=== PATIENT | female | born 1955 | race Caucasian/White ===

== ENCOUNTER → 2017-06-30 | Outpatient (CLI) | payer BC | END | disposition home or self-care (01) | LOC: LABPAT 11:43 | PROVIDERS: ATTEND Orthopaedic Surgery | DX: Z01.812 Encounter for preprocedural laboratory examination (principal) | CPT/HCPCS: 87070 ==

== ENCOUNTER 2017-07-25 09:21 | Inpatient (IN) | payer BC ==
[2017-07-14 12:04] VITALS: BMI 51.2
--- NOTE | 2017-07-24 09:42 | HP ---
HISTORY AND PHYSICAL CHIEF COMPLAINT: Right greater than left knee pain. HISTORY OF PRESENT ILLNESS: The patient is a 61-year-old retired female who presents with progressive right knee pain, worsening over the past 6 months. She notes pain with any weightbearing activities. She has been limping. She has tried medications in addition to injections with only partial temporary relief. She notes the pain severely limits her normal function and act and activities. PAST MEDICAL HISTORY: Significant for hypothyroidism and obesity. PAST SURGICAL HISTORY: Significant for bilateral knee arthroscopy. CURRENT MEDICATIONS: Aspirin, Synthroid. She denies drug allergies. FAMILY HISTORY: Significant for diabetes and heart disease. SOCIAL HISTORY: Negative for current tobacco or alcohol use. REVIEW OF SYSTEMS: Sixteen point review of systems otherwise reviewed and is noncontributory. PHYSICAL EXAMINATION: On examination, the patient is approximately 5 foot 2, 270 pounds of endomorphic habitus. HEENT exam is nonfocal. Neck is supple. She has painless passive motion of the right hip. Straight leg raise is negative. Active motion right knee -8 to 95 degrees of flexion. She is tender about the medial joint line. She has a mild effusion. Collaterals are stable, Sreedhar's negative, Yovany's is equivocal. Her distal neurovascular appears intact in the right lower extremity. She has genu varum alignment. IMPRESSION: 1. Right knee severe medial and patellofemoral compartment osteoarthrosis. 2. Increased body mass index. RECOMMENDATIONS: I talked to the patient at length regarding her disorder and treatment options. At this point, she is quite symptomatic despite extensive conservative measures. After thorough a discussion, she opts to proceed with surgery. We will plan to proceed with right total knee arthroplasty. Risks and benefits were discussed at length in layman's terms. We will institute DVT prophylaxis postoperatively. MMODL / IJN: [id number] /
[~2017-07-25 09:21] MED LIST: ACETAMINOPHEN TAB 500 MG TAB PO ONE; DEXAMETHASONE SOD PHOSPHATE 10 MG/ML 1 ML VIAL IV ONE; LIDOCAINE 1% 20 ML VIAL (10MG/ML) FOR IV START INTRADERMA PRN; MELOXICAM 7.5 MG TAB PO ONE; MIDAZOLAM 2 MG/2 ML VIAL IV PRN; MORPHINE SULFATE 2 MG/ML SYRINGE IV PRN; ONDANSETRON 4 MG/2 ML VIAL IVP ONE; TRANEXAMIC ACID 1,000 MG in SODIUM CHLORIDE 0.9% 50 ML IVPB ONE
[2017-07-25] MEDS: LACTATED RINGERS 1,000 ML IV SCH (12:05)
[2017-07-25] MEDS ORDERED: MIDAZOLAM 2 MG/2 ML VIAL IV ONE (12:15)
[2017-07-25] MEDS ORDERED: ROPIVACAINE 246.25 MG, EPINEPHrine 0.5 MG, KETOROLAC 30 MG, cloNIDine HCL/PF 80 MCG, WA... MISCELLANE ONE ×5 (14:00)
[2017-07-25] MEDS ORDERED: PHENYLEPHRINE-0.9% NACL SYG 1 MG/10 ML SYRINGE ONE (14:12)
[2017-07-25] MEDS ORDERED: GLYCOPYRROLATE 0.2 MG/ML 2 ML VIAL ONE (14:12)
[2017-07-25] MEDS ORDERED: ONDANSETRON 4 MG/2 ML VIAL ONE (14:12)
[2017-07-25] MEDS ORDERED: fentaNYL (PF) 50 MCG/ML 2 ML AMP ONE (14:12)
[2017-07-25] MEDS ORDERED: SODIUM CHLORIDE 0.9% 100 ML BAG ONE (14:12)
[2017-07-25] MEDS ORDERED: TRANEXAMIC ACID 1,000 MG/10 ML VIAL ONE (14:12)
[2017-07-25] MEDS ORDERED: PROPOFOL 10 MG/ML 20 ML VIAL IV ONE (14:12)
[2017-07-25] MEDS ORDERED: MIDAZOLAM 2 MG/2 ML VIAL ONE (14:12)
[2017-07-25] MEDS ORDERED: ACETAMINOPHEN TAB 325 MG TAB PO PRN (14:14)
[2017-07-25] MEDS ORDERED: ONDANSETRON 4 MG/2 ML VIAL IVP PRN (14:14)
[2017-07-25] MEDS ORDERED: HYDROcodone/APAP 7.5-325MG 1 EACH TAB PO PRN ×2 (14:14)
[2017-07-25] MEDS ORDERED: MORPHINE SULFATE 4 MG/ML SYRINGE IVP PRN ×2 (14:14)
[2017-07-25] MEDS ORDERED: MORPHINE SULFATE 4 MG/ML SYRINGE IV PRN ×2 (14:14)
[2017-07-25] MEDS ORDERED: NALOXONE 0.4 MG/ML 1 ML VIAL IV PRN (14:14)
[2017-07-25] MEDS ORDERED: MAGNESIUM HYDROXIDE 2,400 MG/10 ML CUP PO PRN (14:14)
[2017-07-25] MEDS ORDERED: ceFAZolin 3,000 MG in SODIUM CHLORIDE 0.9% IRRIGATIO 3,000 ML IRRIGATION ONE (14:58)
[2017-07-25] MEDS ORDERED: LACTATED RINGERS 1,000 ML IV ONE ×2 (15:12)
--- NOTE | 2017-07-25 16:39 | P.OP ---
Date of Procedure: 07/25/17 Preoperative Diagnosis: Right knee severe tricompartmental osteoarthrosis/BMI 51.2 Postoperative Diagnosis: Same Procedure(s) Performed: Right total knee oastunodoosj-aoojnzmn-wlcyomitk stabilized Implants: Depuy Attune size 5 narrow posterior stabilized cemented femoral component, size 4 cemented tibial component, 9 mm articular surface, 32 mm cemented patellar component. Anesthesia: spinal Surgeon: Gerald Pina Wellness Program Coordinator #1: Rinku Castellanos Estimated Blood Loss (ml): 100 Pathology: other (Bone fragments) Condition: stable Disposition: PACU Indications for Procedure: The patient's a 61-year-old female who presents with progressive right knee pain secondary to osteoarthrosis despite extensive conservative measures. A discussion of the risks and benefits of operative intervention versus continued conservative measures was made with patient. She opted to proceed with surgery. Operative risks to include infection, neurovascular injury, development of blood clots, possible component loosening, possible component failure and need for subsequent procedures was discussed. With her increased body mass index, she understood she was at high risk for complications. Informed consent was obtained. Operative Findings: As below Description of Procedure: The patient was brought to the operating room, and after induction of spinal anesthesia the right lower extremity was prepped and draped in normal fashion. The tourniquet was inflated to 270 mmHg. A longitudinal incision extending 3 finger breaths above the superior pole of patella extending to the medial aspect of the tibial tubercle was then made. The skin and subcutaneous tissues were divided sharply. Electrocautery was used for hemostasis. A medial parapatellar arthrotomy is performed. The medial soft tissues to include the superficial and deep portions of the medial collateral ligament as well as the medial hamstring tendons were elevated subperiosteally. The posterior medial capsule was also elevated. The patella was everted. A portion of the to patella fat pad was excised sharply. The knee was flexed. The anterior cruciate ligament was sacrificed. A starting hole was made in the distal femur 1 cm anterior to the posterior cruciate ligament origin. An intramedullary femoral guide was then gently inserted planning on 5 valgus distal cut with 9 mm distal resection. The cutting block was pinned in place. The distal cut was then made. The posterior referencing sizing guide was utilized. I felt size 5 was most appropriate. 3 of external rotation was built into the system and verified off the trans-epicondylar axis and the posterior condyles. The cutting block was pinned in place. The anterior, posterior, and chamfer cuts were then made. The bone fragments were removed. The box cutting guide was placed and the intercondylar notch was cut was made with a reciprocating saw. The trial size 5 narrow femoral component was placed and was fully seated. There is good anterior to posterior and medial to lateral fit. The distal peg holes were drilled. The trial component was then removed. Attention was then paid towards preparing the proximal tibia. An extra measure tibial guide was utilized in line with the tibial shaft and second metatarsal distally. I planned on 3 posterior slope. I planned on 2 mm resection from the medial compartment. The cutting block was pinned in place. The proximal tibial cut was made in the bone removed in one fragment. I felt I was tight in both flexion and extension therefore an additional 2 mm was resected. The remnants of the medial and lateral menisci were excised at the capsular junction with electrocautery. The tibia sized most appropriate size 4. The trial femoral and tibial components were placed along with a 9 mm articular surface. I was able to obtain full flexion and extension with stability with varus and valgus stress. The tibial rotation was marked with electrocautery in line with the medial one third of the tibial tubercle after several flexion and extension cycles. Attention was then paid towards preparing the patella. A patella reamer was utilized taking this down to 14 mm of bone stock. A good flush cut was made. The patella sized most appropriately 32 mm. The peg holes were drilled. The trial components placed. The knee was taken through range of motion. I had good patellofemoral tracking with no hands technique. The trial components were then removed. The tibia was prepared in the appropriate rotation with appropriate drill and keel punch. The posterior soft tissues were injected with ropivacaine. The flexion and extension gaps were checked and felt to be symmetric. The bony surfaces were prepared with pulsatile lavage and dried. The tibial component was then cemented in placed and was fully seated. Excess cement was removed. The femoral component cemented in placed and was fully seated. Excess cement was removed. The trial 9 mm articular surface was placed and the knee was put in full extension. The patella component was cemented placed and was fully seated. After the cement had sufficiently hardened, the knee was again taken through range of motion felt to be stable in flexion and extension with varus and valgus stress. The trial articular surface was removed and the final one inserted. This was fully seated. Care was taken to avoid any soft tissue interposition. Pulsatile lavage was again utilized. The medial parapatellar arthrotomy was closed with # 2 Ethibond suture. The tourniquet was deflated less than 75 minutes total tourniquet time. Final hemostasis was obtained with electrocautery. The second dose of IV TXA was given. The deep subcu tissues were reapproximated interrupted 2-0 Vicryl sutures. The superficial subcu tissues were reapproximated interrupted 2-0 Vicryl sutures. The skin was reapproximated with 3-0 subcuticular strata fix suture. Skin tape and adhesive was applied. A sterile dressing was applied. The patient was awoken from sedation and transferred to recovery room in good condition. Blood loss was estimated at 100 mL. No complications were incurred. Sponge and needle counts were correct at the end of the case.
--- NOTE | 2017-07-25 17:04 | XR ---
EXAMINATION TYPE: XR knee limited RT DATE OF EXAM: 07/25/2017 CLINICAL HISTORY: Right knee pain and arthritis status post total knee replacement. TECHNIQUE: Portable AP and crosstable lateral views of the right knee are obtained immediately posto peratively. COMPARISON: None FINDINGS: Metallic hardware from total right knee arthroplasty is seen and appears satisfactory in a lignment and position. There is evidence of recent surgery with diffuse subcutaneous gas and swellin g and percutaneous surgical drain noted. IMPRESSION: METALLIC HARDWARE FROM TOTAL RIGHT KNEE ARTHROPLASTY IS SATISFACTORY IN ALIGNMENT.
[2017-07-25] MEDS: traMADol 50 MG TAB PO SCH ×2 (17:49→23:06)
[2017-07-25] MEDS ORDERED: SENNOSIDES-DOCUSATE SODIUM 1 EACH TAB PO SCH (21:00)
[2017-07-25 22:47] VITALS: PULSE 79
[2017-07-26] MEDS: LACTATED RINGERS 1,000 ML IV SCH (02:35)
[2017-07-26 07:50] LABS: Basophils % (A) 0 %; Eosinophils % (A) 0 %; HCT 39.1 % (34.0-46.0); HGB 12.7 gm/dL (11.4-16.0); Lymphocytes # (A) 0.9 k/uL (1.0-4.8); Lymphocytes % (A) 7 %; MCH 31.2 pg (25.0-35.0); MCHC 32.4 g/dL (31.0-37.0); MCV 96.3 fL (80.0-100.0); Mean Platelet Volume 7.9; Monocytes # (A) 1.1 k/uL (0-1.0); Monocytes % (A) 9 %; Neutrophils # (A) 10.1 k/uL (1.3-7.7); Neutrophils % (A) 82 %; Platelet Count 210 k/uL (150-450); RBC 4.07 m/uL (3.80-5.40); RDW 12.8 % (11.5-15.5); WBC 12.3 k/uL (3.8-10.6)
[2017-07-26] MEDS: traMADol 50 MG TAB PO SCH (07:50)
[2017-07-26 07:55] VITALS: BP 132/80; RESP 16; TEMP 97
[2017-07-26] MEDS ORDERED: LEVOTHYROXINE 88 MCG TAB PO SCH (09:00)
[2017-07-26] MEDS ORDERED: ASPIRIN 81 MG PO SCH ×2 (09:00→09:05)
[2017-07-26] MEDS ORDERED: RIVAROXABAN 10 MG TAB PO SCH (09:00)
--- NOTE | 2017-07-26 11:10 | P.PN ---
Subjective Progress Note Date: 07/26/17 Principal diagnosis: Status post right total knee arthroplasty Patient seen today resting in her hospital chair, she appears comfortable. Urinary catheters been removed. She is ambulating with therapy. She denies any headaches, lightheadedness, chest pain, shortness of breath. Objective - Vital Signs Vital signs: Vital Signs Temp 97 F L 07/26/17 07:54 Pulse 79 07/25/17 19:30 Resp 16 07/26/17 07:54 BP 132/80 07/26/17 07:54 Pulse Ox 97 07/26/17 07:54 Intake & Output 07/25/17 07/26/17 07/26/17 18:59 06:59 18:59 Intake Total 1726 Output Total 225 1600 325 Balance 1501 -1600 -325 Weight 127.006 kg Intake: IV 1726 Output: Drainage 150 25 Right Knee 150 25 Urine 125 1450 300 Uretheral (Adams) 450 300 Estimated Blood Loss 100 Other: Voiding Method Indwelling Catheter Indwelling Catheter - Exam Right lower extremity: Incision is clean, dry, and intact. The prineo tape is in good condition. There is minimal soft tissue swelling and ecchymosis surrounding the medial and lateral aspects of the incision. Calf is soft, no tenderness with palpation. Plantar flexion, dorsiflexion, EHL, FHL are intact. Sensory exam to light touch throughout the extremity is intact, dorsal pedis pulses 2+. - Labs CBC & Chem 7: 07/26/17 06:58 Labs: Abnormal Lab Results - Last 24 Hours (Table) 07/26/17 Range/Units 06:58 WBC 12.3 H (3.8-10.6) k/uL Neutrophils # 10.1 H (1.3-7.7) k/uL Lymphocytes # 0.9 L (1.0-4.8) k/uL Monocytes # 1.1 H (0-1.0) k/uL Assessment and Plan Plan: Assessment: Postoperative day #1 status post right total knee arthroplasty Plan: Pain control, continue use of oral medication GI and DVT prophylaxis, continue Xarelto 10 mg daily Wound care instructions were discussed Icing and elevating techniques were discussed Medical recommendations Encourage incentive spirometer Discharge planning: Patient may be discharged home today Time with Patient: Less than 30
--- NOTE | 2017-07-26 11:14 | P.DS ---
Providers Date of admission: 07/25/17 11:23 Expected date of discharge: 07/26/17 Attending physician: Gerald Pina Consults: 07/25/17 14:14 Consult Physician Routine Consulting Provider: Jaswant Hernandez Reason/Comments: medical management Do you want consulting provider notified?: Yes Primary care physician: Jaswant Hernandez [facility] Course: Date of admission: 07/25/2017 Date of discharge: 07/26/2017 Admission diagnosis: Status post right total knee arthroplasty Discharge diagnosis: Same Attending physician: Dr. Pina Surgical procedures: Right total knee arthroplasty Brief history: Patient is a 64-year-old female with a history of progressive primary right knee arthritis. At this point patient has failed conservative treatment measures and has opted to proceed with a elective right total knee arthroplasty. Hospital course: Details of patient's surgery can be found in operative report. Patient tolerated the procedure well and was subsequently transported to orthopedic floor. Patient's orthopeidc and medical care was provided daily. Patient had daily laboratory tests performed for evaluation of overall blood counts. Patient had daily physical therapy to include strengthening range of motion as well as education with walker ambulation. Patient had daily CPM usage as part of their physical therapy program. Patient was treated with Xarelto for their postoperative DVT prophylaxis during their inpatient stay. Patient was noted to have a relatively uneventful postoperative course. Patient reported satisfactory pain control with oral pain medications by postoperative day 0. Patient showed satisfactory progress with physical therapy. Patient moved steadily through the program and had no difficulty meeting the goals by postoperative day 2. Given patient's otherwise satisfactory course and having met physical therapy goals, plan is to discharge patient home on postoperative day 2. Discharge condition/disposition: Patient will be discharged home in stable condition. Discharge medications: Instructions are given on resumption of patient's normal daily medications per primary care recommendation, in addition patient will be prescribed Winchester 7.5 mg/325 mg, tramadol 50 mg, Colace 100 mg, Xarelto 10 mg. Discharge instructions: 1. Wound care and infection precautions, keep incision dry and covered while showering, no lotions, creams, moisturizers. No soaking, tubs, pools, hottubs. Do not scrub over the incision. 2. Weight-bear as tolerated with walker / cane until follow-up. 3. Ice and elevate when necessary. Do not exceed 20 minutes per hour with ice pack. 4. Utilize compression sleeve until seen at first follow up appointment. 5. Visiting nursing care. 6. Home physical therapy [including home CPM]. 7. Pain meds and anticoagulants per prescription. 8. Pain medication has potential to cause constipation. Increase oral fluid and fiber intake. Contact primary care provider if you have not had a bowel movement within 48 hours after discharge 9. No anti-inflammatory medication until discussed at first post operative visit, this including Motrin, Aleve, Mobic, Diclofenac. 10. Follow up in office at 2 weeks postop with Roscoe Castellanos PA-C 11. Follow up with your primary care doctor 7-10 days after discharge. 12. Contact [facility] with any questions, . Procedures: Right total knee arthroplasty Patient Condition at Discharge: Good Plan - Discharge Summary Discharge Rx Participant: Yes New Discharge Prescriptions: New Rivaroxaban [Xarelto] 10 mg PO DAILY #12 tab Docusate [Colace] 100 mg PO DAILY #30 capsule HYDROcodone/APAP 7.5-325MG [Winchester 7.5] 1 - 2 each PO Q6HR PRN #60 tab PRN Reason: Pain traMADol HCl [Ultram] 50 mg PO Q6H PRN #40 tab PRN Reason: Pain No Action Oaiqvcpmcdfyqv-QM-Kbzyeetuoe [Folbic] 1 tab PO DAILY Levothyroxine Sodium 88 mcg PO DAILY Aspirin [Adult Low Dose Aspirin EC] 81 mg PO DAILY Vitamin D3(Unknown Dose) 1 tab PO DAILY Discharge Medication List Aspirin [Adult Low Dose Aspirin EC] 81 mg PO DAILY 07/14/17 [History] Emyjsiogsfocgk-LS-Sbedkbfplt [Folbic] 1 tab PO DAILY 07/14/17 [History] Levothyroxine Sodium 88 mcg PO DAILY 07/14/17 [History] Rivaroxaban [Xarelto] 10 mg PO DAILY #12 tab 07/25/17 [Rx] Vitamin D3(Unknown Dose) 1 tab PO DAILY 07/25/17 [History] Docusate [Colace] 100 mg PO DAILY #30 capsule 07/26/17 [Rx] HYDROcodone/APAP 7.5-325MG [Winchester 7.5] 1 - 2 each PO Q6HR PRN #60 tab 07/26/17 [ Rx] traMADol HCl [Ultram] 50 mg PO Q6H PRN #40 tab 07/26/17 [Rx] [facility]ment[facility] 1 Week Rinku Castellanos PAC [PHYSICIAN LICENSING COORDINATOR] - 08/09/17 3:10 pm Activity/Diet/Wound Care/Special Instructions: Orthopedic Discharge Instructions: 1. Wound care and infection precautions, keep incision dry and covered while showering, no lotions, creams, moisturizers. No soaking, pools, hot tubs. Do not scrub over incision. 2. Weight-bear as tolerated with walker / cane until follow-up. 3. Ice and elevate when necessary. Do not exceed 20 minutes per hour with ice pack. 4. Utilize compression sleeve until seen at first follow up appointment. 5. Visiting nursing care. 6. Home physical therapy including home CPM. 7. Pain meds and anticoagulants per prescription. 8. Pain medication has potential to cause constipation. Increase oral fluid and fiber intake. Contact primary care provider if you have not had a bowel movement within 48 hours after discharge. 9. No anti-inflammatory medication until discussed at first post operative visit, this including Motrin, Aleve, Mobic, Diclofenac. 10. Follow up in office at 2 weeks postop with Roscoe Castellanos PA-C 11. Follow up with your primary care doctor 7-10 days after discharge. 12. Contact [facility] with any questions, . Discharge Disposition: HOME WITH HOME HEALTH SERVICES
--- NOTE | 2017-07-26 22:35 | CONS ---
CONSULTATION This is a consultation being done at the request of Dr. Gerald Pina. DATE OF SERVICE: Date patient was seen is 07/26/2017. HISTORY OF PRESENT ILLNESS: The patient is a pleasant 61-year-old white female who was admitted for undergoing elective right total knee arthroplasty. The patient was having persistent problem with her right knee and failed conservative measures. She had previous right knee arthroscope for internal derangement. She was pknr-ut-vejp arthritis and her quality of life was diminished. She elected to undergo a right total knee arthroplasty today and is doing quite well. CURRENT MEDICATIONS: Include aspirin and levothyroxine 88 mcg once daily. ALLERGIES: No known drug allergies. PAST SURGICAL HISTORY: Previous operations include the right knee arthroscopy, foot surgery and a tubal ligation. PAST MEDICAL HISTORY: Significant for hypothyroidism, degenerative joint disease and osteoarthritis and obesity. REVIEW OF SYSTEMS: She denies any cough, congestion, shortness of breath. No nausea, vomiting, diarrhea, constipation. She denies any neurological complications such as stroke or paralysis. She denies any skin rashes. She denies any psychiatric difficulties. PHYSICAL EXAM: Her vital signs are stable. She is afebrile. HEENT. HEAD: Normocephalic, atraumatic. Normal distribution of hair. NECK: Supple. No JVD. HEART: Regular rate and rhythm. LUNGS: Clear to auscultation. ABDOMEN: Soft, nontender. No rebound, rigidity, guarding. EXTREMITIES: No cyanosis, clubbing or jaundice. Preop physical and review was done prior to hospitalization. Please refer to that in the hospital record. The patient was cleared for surgery. IMPRESSION: 1. Right total knee arthroplasty. 2. Right knee degenerative osteoarthritis. 3. Hypothyroidism. PLAN: 1. DVT prophylaxis. 2. Pain control and rehabilitation already in progress. The patient is doing well from medical standpoint and can be discharged when orthopedically stable. Thank you for allowing me to participate in this patient's care. MMODL / IJN: [id number] /
== END 2017-07-26 14:30 | disposition home health service (06) | DRG 470 ==
LOC: 2ORMAIN 11:23 → 3SUR 16:31
PROVIDERS: ADMIT Orthopaedic Surgery; ATTEND Orthopaedic Surgery
PROC: 0SRC0J9 Replacement of Right Knee Joint with Synthetic Substitute, Cemented, Open Approach (ICD-10-PCS; principal; 2017-07-25 13:45)
DX: M17.11 Unilateral primary osteoarthritis, right knee (principal); Z68.43 Body mass index [BMI] 50.0-59.9, adult; E03.9 Hypothyroidism, unspecified; E66.01 Morbid (severe) obesity due to excess calories; Z79.82 Long term (current) use of aspirin; Z79.899 Other long term (current) drug therapy; Z83.3 Family history of diabetes mellitus; Z82.49 Family history of ischemic heart disease and other diseases of the circulatory system
CPT/HCPCS: 85025; 88300

== ENCOUNTER 2017-10-10 06:41 | Day surgery (SDC) | payer BC ==
[2017-10-03 12:04] VITALS: BMI 47.9
--- NOTE | 2017-10-06 13:01 | HP ---
HISTORY AND PHYSICAL CHIEF COMPLAINT: Right knee stiffness. HISTORY OF PRESENT ILLNESS: The patient is a 61-year-old retired female who underwent right total knee arthroplasty on 07/25/2017 without complication. She had adequate rehabilitation. The postoperative period; however, had persistent stiffness. She is ambulating with a cane. PAST MEDICAL HISTORY: Significant for arthritis and hypothyroidism. PAST SURGICAL HISTORY: Significant for left knee arthroscopy and right total knee arthroplasty. CURRENT MEDICATIONS: 1. Aspirin. 2. Synthroid. She denies drug allergies. FAMILY HISTORY: Significant for diabetes and heart disease. SOCIAL HISTORY: Negative for current tobacco or alcohol use. REVIEW OF SYSTEMS: A 16 point review of systems otherwise reviewed and is noncontributory. PHYSICAL EXAMINATION: The patient is approximately 5 foot 276 pounds of endomorphic habitus. She has painless passive motion of the right hip. Straight leg raise is negative. Active motion right knee -8 to 75 degrees of flexion. Incision appears to be healing well. There is no warmth or erythema. She has no real joint line tenderness. Collaterals are stable. Homans is negative. Her distal neurovascular exam appears intact in the right lower extremity. IMPRESSION: Status post right total knee arthroplasty with arthrofibrosis. RECOMMENDATIONS: I talked to the patient at length regarding her condition and treatment options. At this point, she is quite stiff and she opts to proceed with manipulation under anesthesia. We will start therapy directly after the procedure. EDDIEL / JUVEN: [id number] /
[~2017-10-10 06:41] MED LIST changes: -ACETAMINOPHEN TAB 500 MG TAB PO ONE; +LACTATED RINGERS 1,000 ML IV SCH; -LIDOCAINE 1% 20 ML VIAL (10MG/ML) FOR IV START INTRADERMA PRN; -MELOXICAM 7.5 MG TAB PO ONE; -MORPHINE SULFATE 2 MG/ML SYRINGE IV PRN; +SCOPOLAMINE 1.5MG/72HR PATCH TRANSDERM ONE; -TRANEXAMIC ACID 1,000 MG in SODIUM CHLORIDE 0.9% 50 ML IVPB ONE; +fentaNYL (PF) 50 MCG/ML 2 ML AMP IV PRN
[2017-10-10 07:01] VITALS: TEMP 98.3
[2017-10-10] MEDS ORDERED: PROPOFOL 10 MG/ML 20 ML VIAL IV ONE (07:50)
--- NOTE | 2017-10-10 07:56 | P.OP ---
Date of Procedure: 10/10/17 Preoperative Diagnosis: Right knee arthrofibrosis status post total knee arthroplasty Postoperative Diagnosis: Same Procedure(s) Performed: Manipulation under anesthesia right knee Anesthesia: MAC Surgeon: Gerald Pina Estimated Blood Loss (ml): 0 Pathology: none sent Condition: stable Disposition: PACU Indications for Procedure: The patient's a 62-year-old female who presents after undergoing right total knee arthroplasty with persistent stiffness despite adequate rehabilitation. A discussion of the risks and benefits of manipulation under anesthesia was made with patient. She opted to proceed. Risks of this procedure to include fracture, dislocation, recurrence of stiffness, and possible need for subsequent procedures was discussed. Informed consent was obtained. Operative Findings: As below Description of Procedure: The patient was brought to the recovery room, and after induction of IV sedation the left knee was then manipulated. I was able to obtain 110 of flexion after encountering moderate adhesions. I was also obtain to obtain full extension. The patient was then monitored until fully awake. No complications were incurred. There was no blood loss.
[2017-10-10 09:16] VITALS: BP 125/78; PULSE 67; RESP 18
== END 2017-10-10 09:31 | disposition home or self-care (01) ==
LOC: OR 06:41
PROVIDERS: ATTEND Orthopaedic Surgery
DX: M24.661 Ankylosis, right knee (principal); Z96.651 Presence of right artificial knee joint; M19.90 Unspecified osteoarthritis, unspecified site; E03.9 Hypothyroidism, unspecified; Z79.82 Long term (current) use of aspirin; Z79.890 Hormone replacement therapy
CPT/HCPCS: 27570; J1100; J2405; J2704

== ENCOUNTER 2019-03-02 12:06 | Emergency (ER) | payer MEDICARE ==
[2019-03-02 12:13] VITALS: TEMP 97.6
[2019-03-02] MEDS ORDERED: NA PHOS,M-B/NA PHOS,DI-BA 133 ML ENEMA RECTAL STA (12:52)
--- NOTE | 2019-03-02 12:56 | XR ---
EXAMINATION TYPE: XR KUB , 2 VIEWS DATE OF EXAM ORDERED: 03/02/2019 HISTORY: pain, constipation. COMPARISON: None. FINDINGS: Lung bases are clear. Within the abdomen, the abdominal gas pattern is normal. There is no evidence of obstruction or free air. No unusual calcifications are seen. IMPRESSION: NO ACUTE INTRA-ABDOMINAL ABNORMALITY.
--- NOTE | 2019-03-02 13:03 | ED ---
Abdominal Pain HPI - General Chief Complaint: Abdominal Pain Stated Complaint: Poss Rectal Prolapse Time Seen by Provider: 03/02/19 12:16 Source: patient Mode of arrival: ambulatory Limitations: no limitations - History of Present Illness Initial Comments: Patient is a 63-year-old female presenting to emergency Department with complaints of a possible prolapsed rectum. Patient states she felt something coming out of her rectum and took pictures of it and states 'the pictures online for a prolapsed rectum look similar to what she is experiencing". Patient states she has been constipated for the last day and has also been having lower abdominal cramping. Patient denies fever, chills, nausea, vomiting, diarrhea, severe abdominal pain. Patient's admits to history of tubal ligation, no other abdominal surgeries. Patient denies blood in the stool. Patient has no other complaints at this time. Upon arrival to the ER, her vital signs are stable. - Related Data Home Medications Medication Instructions Recorded Confirmed Wcojmnzeisxanb-AC-Wutuyofpwh 1 tab PO DAILY 07/14/17 10/10/17 [Folbic] Levothyroxine Sodium 88 mcg PO DAILY 07/14/17 10/10/17 Methylprednisolone Dose Pack 1 dose PO DAILY 10/03/17 10/10/17 Naproxen (Unknown Dose) 1 tab PO DAILY PRN 10/03/17 10/10/17 Aspirin 81 mg PO DAILY 10/10/17 10/10/17 Allergies Allergy/AdvReac Type Severity Reaction Status Date / Time No Known Allergies Allergy Verified 03/02/19 12:13 Review of Systems ROS Statement: Those systems with pertinent positive or pertinent negative responses have been documented in the HPI. ROS Other: All systems not noted in ROS Statement are negative. Past Medical History Past Medical History: Osteoarthritis (OA), Thyroid Disorder Additional Past Medical History / Comment(s): RIGHT TOTAL KNEE SURGERY 07/25/17- STATES KNEE IS STIFF., STATES LIMPING AND USING CANE., ARTHRITIS LEFT KNEE,, SEES CHIROPRACTOR PRN FOR HIP PAIN. History of Any Multi-Drug Resistant Organisms: None Reported Past Surgical History: Joint Replacement, Orthopedic Surgery, Tubal Ligation Additional Past Surgical History / Comment(s): L knee scope; foot surgery; Colonoscopy, Total Right Knee (07/25/17) Past Anesthesia/Blood Transfusion Reactions: Postoperative Nausea & Vomiting (PONV) Past Psychological History: Anxiety, Panic Disorder Smoking Status: Former smoker Past Drug Use History: None Reported - Past Family History Mother Family Medical History: Cancer Additional Family Medical History / Comment(s): Skin CA Brother(s) Family Medical History: Cancer Additional Family Medical History / Comment(s): Testicular CA General Exam - General Exam Comments Initial Comments: GENERAL: Well-appearing, well-nourished and in no acute distress. HEAD: Atraumatic, normocephalic. EYES: Pupils equal round and reactive to light, extraocular movements intact, sclera anicteric, conjunctiva are normal. ENT: TMs normal, nares patent, oropharynx clear without exudates. Moist mucous membranes. NECK: Normal range of motion, supple without lymphadenopathy or JVD. LUNGS: Breath sounds clear to auscultation bilaterally and equal. No wheezes rales or rhonchi. HEART: Regular rate and rhythm without murmurs, rubs or gallops. ABDOMEN: Soft, nontender, normoactive bowel sounds. No guarding, no rebound. No masses appreciated. EXTREMITIES: Normal range of motion, no pitting or edema. No clubbing or cyanosis. NEUROLOGICAL: Normal speech, normal gait. PSYCH: Normal mood, normal affect. SKIN: Warm, Dry, normal turgor, no rashes or lesions noted. Limitations: no limitations Rectal exam: Present: normal rectal tone, heme (+) stool, hemorrhoids (Mild external hemorrhoids), other (Harden stool) Course Vital Signs 03/02/19 03/02/19 12:10 14:19 Temperature 97.6 F Pulse Rate 87 68 Respiratory 20 18 Rate Blood Pressure 133/71 128/72 O2 Sat by Pulse 100 98 Oximetry Medical Decision Making - Medical Decision Making Patient is a 63-year-old female presenting with constipation and external hemorrhoids. Vital signs are normal. KUB shows no acute abnormalities. On exam patient has mild internal and external hemorrhoids. Stool felt on exam. Patient was given an enema and had a significant bowel movement. Reexamination revealed hemorrhoids again. I discussed these findings with the patient. I recommended MiraLAX for 2 weeks to soften stool. Patient will follow-up with her PCP. Patient stable for discharge at this time and she is in agreement with this plan of care. Return parameters were discussed with the patient she verbalized understanding. - Lab Data Lab Results 03/02/19 Range/Units 12:40 Stool Occult Blood Positive H (Negative) Disposition Clinical Impression: Constipation, Hemorrhoids Disposition: HOME SELF-CARE Condition: Stable Instructions (If sedation given, give patient instructions): Hemorrhoids (ED) Additional Instructions: Please return to the Emergency Department if symptoms worsen or any other concerns. Follow-up with PCP if symptoms persist. Trial of MiraLAX as discussed. for 2-3 weeks daily Is patient prescribed a controlled substance at d/c from ED?: No Referrals: Jaswant Hernandez DO [Primary Care Provider] - 1-2 days
[2019-03-02 14:20] VITALS: BP 128/72; PULSE 68; RESP 18
== END 2019-03-02 14:19 | disposition home or self-care (01) ==
LOC: EC 12:06
DX: K64.4 Residual hemorrhoidal skin tags (principal); K64.8 Other hemorrhoids; K59.00 Constipation, unspecified; M17.12 Unilateral primary osteoarthritis, left knee; E07.9 Disorder of thyroid, unspecified; Z87.891 Personal history of nicotine dependence; Z79.52 Long term (current) use of systemic steroids; Z79.82 Long term (current) use of aspirin; Z79.890 Hormone replacement therapy; Z96.651 Presence of right artificial knee joint
CPT/HCPCS: 36415; 74018; 82272; 99284

== ENCOUNTER → 2021-04-09 | Outpatient (CLI) | payer MEDICARE ==
[2021-04-09 14:56] VITALS: BP 127/83; PULSE 63; RESP 18; TEMP 98.6
--- NOTE | 2021-04-09 15:38 | P.GSHP ---
History of Present Illness H&P Date: 04/09/21 Chief Complaint: abnormal left breast ultrasound Vera is a 65 year old white female seen in consultation for Dr. Hernandez regarding an ulrasound abnormality in her left breast. She had a bilateral mammogram prior to the ultrasound which led to the ultrasound. Nothing was seen of concern in the right breast. The ultrasound was done on 03-18-21 and revealed a .5 by .7 cm lesion in the 3 0clock position for which biopsy was recommended. Not feel any lumps passes are nodules of concern in either breast. She is not complaining of any nipple discharge or skin changes. She has not had any infection or trauma in her breast. She has not had any surgery in her breasts. Caffiene: 2 tea bags/day nicotine: none; stopped 20 years ago; smoked for 20 years up to < 1PPD chocolate: occasional hormones: none BCP: 10 years stopped many years ago had a tubal Family History: brother: testicular cancer son: leukemia paternal grandmother: breast cancer Hormonal History: menarche:12 , breast fed: no, age at first : 18 menopause: 48 Surgical History: heel planter fasciitis right knee replacement tubal Medical History: none Social History: nicotine: prior alcohol: none drugs: none - Constitutional Constitutional: Denies chills, Denies fever - EENT Comment: bilateral cataracts Eyes: denies blurred vision, denies pain Ears: deny: decreased hearing, tinnitus Ears, nose, mouth and throat: Denies headache, Denies sore throat - Breasts Breasts: bilateral: as per HPI - Cardiovascular Cardiovascular: Denies chest pain, Denies shortness of breath - Respiratory Respiratory: Denies cough, Denies 7 - Gastrointestinal Gastrointestinal: Denies abdominal pain, Denies diarrhea, Denies nausea, Denies vomiting - Genitourinary (Female) Genitourinary: Denies dysuria, Denies hematuria - Menstruation Menstruation: Reports postmenopausal - Musculoskeletal Comment: right knee replacement Musculoskeletal: Denies myalgias - Integumentary Integumentary: Denies pruritus, Denies rash - Neurological Neurological: Denies numbness, Denies weakness - Endocrine Comment: lost 100 pounds hypothyroid Endocrine: Reports weight change - Hematologic/Lymphatic Comment: baby aspirin daily - Allergic/Immunologic Allergic/Immunologic: Reports as per HPI Past Medical History Past Medical History: Osteoarthritis (OA), Thyroid Disorder Additional Past Medical History / Comment(s): RIGHT TOTAL KNEE SURGERY 07/25/17- STATES KNEE IS STIFF., STATES LIMPING AND USING CANE., ARTHRITIS LEFT KNEE,, SEES CHIROPRACTOR PRN FOR HIP PAIN. History of Any Multi-Drug Resistant Organisms: None Reported Past Surgical History: Joint Replacement, Orthopedic Surgery, Tubal Ligation Additional Past Surgical History / Comment(s): L knee scope; foot surgery; Colonoscopy, Total Right Knee (07/25/17) Past Anesthesia/Blood Transfusion Reactions: Postoperative Nausea & Vomiting (PONV) Past Psychological History: Anxiety, Panic Disorder Additional Psychological History / Comment(s): Hx of panic attacks; no meds now Smoking Status: Former smoker Additional Past Alcohol Use History / Comment(s): quit smoking 20 yrs ago; had smoked for about 20 yrs 1 ppd Past Drug Use History: None Reported - Past Family History Mother Family Medical History: Cancer Additional Family Medical History / Comment(s): Skin CA Brother(s) Family Medical History: Cancer Additional Family Medical History / Comment(s): Testicular CA Medications and Allergies Home Medications Medication Instructions Recorded Confirmed Type Gcklubdilhqreo-EW-Dybgknvbtp 1 tab PO DAILY 07/14/17 04/09/21 History [Folbic] Levothyroxine Sodium 88 mcg PO DAILY 07/14/17 04/09/21 History Aspirin 81 mg PO DAILY 10/10/17 04/09/21 History Ascorbic Acid [Vitamin C] 500 mg PO DAILY 04/09/21 04/09/21 History Iron 18 mg PO DAILY 04/09/21 04/09/21 History Vitamin E 400 unit PO DAILY 04/09/21 04/09/21 History Zinc 50 mg PO DAILY 04/09/21 04/09/21 History Allergies Allergy/AdvReac Type Severity Reaction Status Date / Time No Known Allergies Allergy Verified 04/09/21 14:51 Surgical - Exam Vital Signs Temp Pulse Resp BP Pulse Ox 98.6 F 63 18 127/83 98 04/09/21 14:54 04/09/21 14:54 04/09/21 14:54 04/09/21 14:54 04/09/21 14:54 BMI 33.8 - General no distress - Eyes normal ocular movement - Neck trachea midline - Respiratory normal respiratory effort - Cardiovascular Rhythm: regular Heart Sounds: normal: S1, S2 - Abdomen Abdomen: soft, non tender, no guarding, no rigid, no rebound - Integumentary normal turgor - Neurologic no disoriented, no combative - Musculoskeletal normal gait - Psychiatric oriented to time, oriented to person, oriented to place, speech is normal, memory intact Breast Exam: BRA: 40DD inspection: Bilateral grade 2/3 ptosis Palpation: Right breast: Multiple positional exam fibrocystic changes no dominant masses or nodules of concern Right axilla: No adenopathy of concern {: Multiple positional exam fibrocystic changes no dominant masses or nodules of concern Left axilla: No adenopathy of concern Results Ultrasound results reviewed Assessment and Plan Assessment: Impression: left breast abnormal ultrasound Plan: ultrasound core biopsy of the left breast and follow up In benefits of the procedure discussed with the patient. She understands and wishes to proceed. Cc: Dr. Hernandez
== END | disposition home or self-care (01) ==
LOC: WWCWWP 13:56
PROVIDERS: ATTEND Surgery
DX: Z53.9 Procedure and treatment not carried out, unspecified reason (principal)

== ENCOUNTER → 2021-04-29 | Outpatient (CLI) | payer MEDICARE ==
[2021-04-29 12:52] VITALS: BP 127/82; PULSE 65; RESP 17; TEMP 97.7
--- NOTE | 2021-04-29 13:17 | P.PN ---
Subjective Progress Note Date: 04/29/21 Principal diagnosis: Intraductal papilloma left breast There is a 65-year-old white female status post ultrasound-guided core biopsy left breast on . Pathology revealed an intraductal papilloma. The x-rays were reviewed with Dr. Waters. Objective - Vital Signs Vital signs: Vital Signs Temp 97.7 F 04/29/21 12:48 Pulse 65 04/29/21 12:48 Resp 17 04/29/21 12:48 BP 127/82 04/29/21 12:48 Pulse Ox Intake & Output 04/28/21 04/29/21 04/29/21 18:59 06:59 18:59 Weight 90.718 kg - Constitutional General appearance: Present: cooperative - EENT Eyes: Present: EOMI ENT: Present: hearing grossly normal - Neck Neck: Present: normal ROM - Respiratory Respiratory: bilateral: CTA - Cardiovascular Heart sounds: normal: S1, S2 - Integumentary Integumentary Comment(s): See changes, no evidence of infection or hematoma - Musculoskeletal Musculoskeletal: Present: gait normal - Psychiatric Psychiatric: Present: A&O x's 3, appropriate affect, intact judgment & insight Assessment and Plan Assessment: Impression: Intraductal papilloma left breast Plan: We discussed needle localization of the left breast and excisional lumpectomy of the intraductal papilloma, at this time the patient has decided to think about the procedure and she will let us know if she would like to proceed or not. I discussed that this is a lesion which may indicate increased risk of a precancer cancer in the vicinity, she is well aware of this, we have also discussed that at some universities they are watching intraductal papillomas. At this time she does not want to proceed with surgical intervention. CC: David
== END ==
LOC: WWCWWP 12:06
PROVIDERS: ATTEND Surgery
DX: Z53.9 Procedure and treatment not carried out, unspecified reason (principal)

== ENCOUNTER 2021-06-08 07:08 | Day surgery (SDC) | payer MEDICARE ==
[2021-06-02 13:35] VITALS: BMI 36.0
[~2021-06-08 07:08] MED LIST changes: -DEXAMETHASONE SOD PHOSPHATE 10 MG/ML 1 ML VIAL IV ONE; +DEXAMETHASONE SOD PHOSPHATE 4 MG/ML 1 ML VIAL IV ONE; +HEPARIN SODIUM,PORCINE/PF 5,000 UNIT/0.5 ML SYRINGE SQ PRN; +HYDROmorphone 0.5 MG/0.5 ML SYRINGE IVP PRN; -MIDAZOLAM 2 MG/2 ML VIAL IV PRN; +Pre Op ABX Message 1 EACH MISC MISCELLANE ONE; -SCOPOLAMINE 1.5MG/72HR PATCH TRANSDERM ONE; -fentaNYL (PF) 50 MCG/ML 2 ML AMP IV PRN
[2021-06-08] MEDS ORDERED: ALPRAZolam 0.25 MG TAB ONE (07:49)
[2021-06-08] MEDS ORDERED: LIDOCAINE 1% (10MG/ML) FOR IV START INTRADERMA ONE (08:04)
--- NOTE | 2021-06-08 08:40 | P.PN ---
Subjective Progress Note Date: 06/08/21 Principal diagnosis: Left breast intraductal papilloma Vera is a 65 year old white female seen in consultation for Dr. Hernandez regarding an ulrasound abnormality in her left breast. She had a bilateral mammogram prior to the ultrasound which led to the ultrasound. Nothing was seen of concern in the right breast. The ultrasound was done on 03-18-21 and revealed a .5 by .7 cm lesion in the 3 0clock position for which biopsy was recommended. Not feel any lumps passes are nodules of concern in either breast. She was not complaining of any nipple discharge or skin changes. She had not had any infection or trauma in her breast. She had not had any surgery in her breasts. The patient on underwent an ultrasound-guided core biopsy. Pathology revealed an intraductal papilloma. She tolerated the procedure without difficulty. The x-rays were reviewed with radiology and was felt to be concordant. Caffiene: 2 tea bags/day nicotine: none; stopped 20 years ago; smoked for 20 years up to < 1PPD chocolate: occasional hormones: none BCP: 10 years stopped many years ago had a tubal Family History: brother: testicular cancer son: leukemia paternal grandmother: breast cancer Hormonal History: menarche:12 , breast fed: no, age at first : 18 menopause: 48 Surgical History: heel planter fasciitis right knee replacement tubal Medical History: none Social History: nicotine: prior alcohol: none drugs: none - Constitutional Constitutional: Denies chills, Denies fever - EENT Comment: bilateral cataracts Eyes: denies blurred vision, denies pain Ears: deny: decreased hearing, tinnitus Ears, nose, mouth and throat: Denies headache, Denies sore throat - Breasts Breasts: bilateral: as per HPI - Cardiovascular Cardiovascular: Denies chest pain, Denies shortness of breath - Respiratory Respiratory: Denies cough, Denies 7 - Gastrointestinal Gastrointestinal: Denies abdominal pain, Denies diarrhea, Denies nausea, Denies vomiting - Genitourinary (Female) Genitourinary: Denies dysuria, Denies hematuria - Menstruation Menstruation: Reports postmenopausal - Musculoskeletal Comment: right knee replacement Musculoskeletal: Denies myalgias - Integumentary Integumentary: Denies pruritus, Denies rash - Neurological Neurological: Denies numbness, Denies weakness - Endocrine Comment: lost 100 pounds hypothyroid Endocrine: Reports weight change - Hematologic/Lymphatic Comment: baby aspirin daily - Allergic/Immunologic Allergic/Immunologic: Reports as per HPI Past Medical History Past Medical History: Osteoarthritis (OA), Thyroid Disorder Additional Past Medical History / Comment(s): RIGHT TOTAL KNEE SURGERY 07/25/17- STATES KNEE IS STIFF., STATES LIMPING AND USING CANE., ARTHRITIS LEFT KNEE,, SEES CHIROPRACTOR PRN FOR HIP PAIN. History of Any Multi-Drug Resistant Organisms: None Reported Past Surgical History: Joint Replacement, Orthopedic Surgery, Tubal Ligation Additional Past Surgical History / Comment(s): L knee scope; foot surgery; Colonoscopy, Total Right Knee (07/25/17) Past Anesthesia/Blood Transfusion Reactions: Postoperative Nausea & Vomiting (PONV) Past Psychological History: Anxiety, Panic Disorder Additional Psychological History / Comment(s): Hx of panic attacks; no meds now Smoking Status: Former smoker Additional Past Alcohol Use History / Comment(s): quit smoking 20 yrs ago; had smoked for about 20 yrs 1 ppd Past Drug Use History: None Reported Objective - Vital Signs Vital signs: Vital Signs Temp 96.9 F L 06/08/21 07:52 Pulse 63 06/08/21 07:52 Resp 16 06/08/21 07:52 BP 140/68 06/08/21 07:52 Pulse Ox 100 06/08/21 07:52 Intake & Output 06/07/21 06/08/21 06/08/21 18:59 06:59 18:59 Weight 94.7 kg - Constitutional General appearance: Present: cooperative - EENT Eyes: Present: EOMI ENT: Present: hearing grossly normal - Neck Neck: Present: normal ROM - Respiratory Respiratory: bilateral: CTA - Cardiovascular Rhythm: regular Heart sounds: normal: S1, S2 - Gastrointestinal General gastrointestinal: Present: soft - Integumentary Integumentary: Present: normal turgor - Musculoskeletal Musculoskeletal: Present: gait normal - Psychiatric Psychiatric: Present: A&O x's 3, appropriate affect, intact judgment & insight - Additional findings Additional findings: Breast examination: Broad: 40 DD Inspection: Bilateral grade 2/3 ptosis Palpation: Right breast: Multiple positional exam fibrocystic changes no dominant masses or nodules of concern Axilla: No adenopathy of concern Left breast: Multi-positional exam fibrocystic changes no dominant masses or nodules of concern Left axilla: No adenopathy of concern Assessment and Plan Assessment: Impression: Intraductal papilloma left breast Plan: Needle localization excisional lumpectomy intraductal papilloma Risks and benefits of the procedure were discussed with the patient. Risks include but are not limited to bleeding, infection, reaction to the anesthetic. I discussed in detail with her that the intraductal papilloma is not a premalignant lesion in itself but may have increased risk of a precancerous or cancerous lesion in the vicinity. She was aware of this. We discussed that we could watch this however after discussion she has opted for a needle local excisional biopsy. She also understands additional risk that the lesion may not be removed which could result in need for additional surgery.
[2021-06-08] MEDS ORDERED: LIDOCAINE 1% INJ 10MG/ML (20 ML MDV) SQ ONE (08:55)
[2021-06-08] MEDS ORDERED: fentaNYL (PF) 50 MCG/ML 2 ML AMP ONE (09:27)
[2021-06-08] MEDS ORDERED: KETOROLAC 15 MG/ML 1 ML VIAL ONE (09:27)
[2021-06-08] MEDS ORDERED: MIDAZOLAM 2 MG/2 ML VIAL ONE (09:27)
[2021-06-08] MEDS ORDERED: PROPOFOL 10 MG/ML 20 ML VIAL IV ONE (09:27)
[2021-06-08] MEDS ORDERED: LIDOCAINE 1% INJ 10MG/ML (20 ML MDV) ONE (09:27)
[2021-06-08] MEDS ORDERED: LIDOCAINE 1% (PF) 10 MG/ML (30 ML SDV) SQ ONE (10:34)
--- NOTE | 2021-06-08 10:35 | P.OP ---
Date of Procedure: 06/08/21 Preoperative Diagnosis: Left breast intraductal papilloma Postoperative Diagnosis: Same Procedure(s) Performed: Localization excisional biopsy onco plastic tissue transfer 31 centimeters squared Anesthesia: PARISA Surgeon: Amisha Winters Estimated Blood Loss (ml): 5 IV fluids (ml): 300 Pathology: other (Breast tissue, radiographic specimen reveals the area of concern has been sampled clip is in specimen) Condition: stable Disposition: same day Indications for Procedure: Intraductal papilloma left breast Operative Findings: Fibrofatty breast tissue Description of Procedure: The patient is a 65-year-old white female who on ultrasound core biopsy of the left breast was noted to have an intraductal papilloma. Options such as watchful waiting versus excision were discussed with the patient. The patient wished for excision. She understands this is not a premalignant condition but there may be precancerous or cancerous lesions in the vicinity. She wished for excision. We discussed incision type and mastopexy incision versus standard incision. We are going to utalize a standard incision. Following needle localization of the area of concern in the radiology suite the patient was brought to the operating room. Following induction of anesthesia the left breast was prepped and draped in a sterile fashion. Incision was made and carried down to the hook of the needle. Surrounding tissue was excised. The cavity was 5 x 2 cm, a superior pillar was mobilized 4 x 1.5 cm and inferior pillar was mobilized 5 x 3 cm. Total onco-plastic tissue transfer was 31 cm. After the lesion had been excised the specimen was painted for orientation. Radiograph of the specimen revealed that the clip of concern was in the specimen. After we were assured that hemostasis was attained titanium clips were placed. The pillars were developed. The pillars were brought together using 3-0 Vicryl suture. The skin was closed using a 3-0 Vicryl suture followed by a 4-0 Monocryl. Steri-Strips were applied. The patient tolerated the procedure in stable condition. 8 CC of 1% lidocaine were injected into the area. The patient tolerated procedure in stable condition. All instrument and sponge counts were correct at the end of the case.
--- NOTE | 2021-06-08 10:37 | P.DS ---
Providers Attending physician: Amisha Winters Primary care physician: Jaswant Hernandez Plan - Discharge Summary Discharge Rx Participant: No New Discharge Prescriptions: No Action Levothyroxine Sodium 88 mcg PO DAILY Aspirin 81 mg PO DAILY Zinc 25 mg PO 1200 Ascorbic Acid [Vitamin C] 500 mg PO 1199 Cholecalciferol [Vitamin D3 (125 Mcg = 5000 Iu)] 125 mcg PO 1999 Wosatydcyhefcy-EA-Rsfzblctbh [Folbic] 1 tab PO 1999 Ferrous Sulfate [Feosol] 325 mg PO 1999 Discharge Medication List Levothyroxine Sodium 88 mcg PO DAILY 07/14/17 [History] Aspirin 81 mg PO DAILY 10/10/17 [History] Ascorbic Acid [Vitamin C] 500 mg PO 119904/09/21 [History] Zinc 25 mg PO 119904/09/21 [History] Cholecalciferol [Vitamin D3 (125 Mcg = 5000 Iu)] 125 mcg PO 199906/02/21 [History] Uckjcjursdyvgb-DX-Wquvmvgtcy [Folbic] 1 tab PO 199906/02/21 [History] Ferrous Sulfate [Feosol] 325 mg PO 199906/02/21 [History] Follow up Appointment(s)/Referral(s): Amisha Winters MD [STAFF PHYSICIAN] - 06/17/21 4:00 pm Activity/Diet/Wound Care/Special Instructions: wear bra at all times may shower after 48 hours Discharge Disposition: HOME SELF-CARE
[2021-06-08] MEDS ORDERED: HYDROmorphone 0.5 MG/0.5 ML SYRINGE IVP ONE (10:50)
[2021-06-08 10:56] VITALS: TEMP 98.2
[2021-06-08 11:38] VITALS: RESP 20
[2021-06-08 11:40] VITALS: BP 137/78; PULSE 55
--- NOTE | 2021-06-08 15:53 | MM ---
EXAMINATION TYPE: MG surgical specimen LT DATE OF EXAM: 06/08/2021 COMPARISON: NONE CLINICAL HISTORY: Abnormal biopsy results TECHNIQUE: Needle localization with wire placement and surgical excision of area of concern in the le ft breast. FINDINGS: The procedure of needle localization with wire placement for surgical excision was explaine d to the patient. Risk, benefits, and alternatives were discussed. An informed consent was then obt ained. A timeout was performed. The overlying skin was prepped and draped in usual sterile fashion. Lidocaine 1% was used as anesthe tic into the skin and subcutaneous tissue up to the level of area of concern. A 9 cm needle was used . This was placed via a lateral approach under mammographic guidance. Subsequent 90 degrees mammogr am show the needle to be in satisfactory position relative to the targeted area. The wire was placed through the needle and the needle was withdrawn. The wire was fixed to patient's skin. Images were marked for surgeon. The patient tolerated the procedure well without any immediate complication. Specimen: The wire and the targeted biopsy clip are identified within the specimen mammogram. IMPRESSION: 1. Successful wire localization and excision. Recommendations: 1. Recommendations are pending pathology results.
== END 2021-06-08 11:58 | disposition home or self-care (01) ==
LOC: OR 07:08
PROVIDERS: ATTEND Surgery
DX: D24.2 Benign neoplasm of left breast (principal); N60.12 Diffuse cystic mastopathy of left breast; E78.5 Hyperlipidemia, unspecified; M19.90 Unspecified osteoarthritis, unspecified site; Z98.51 Tubal ligation status; Z96.659 Presence of unspecified artificial knee joint; E66.9 Obesity, unspecified; Z68.37 Body mass index [BMI] 37.0-37.9, adult; Z79.890 Hormone replacement therapy; Z79.899 Other long term (current) drug therapy
CPT/HCPCS: 88307; 76098; 19281; 19301; 14301; J2250; J1100; J2405; J2001 ×2; J3010; J1885; J2704; J1170; J1644